=== PATIENT | female | born 2000 | race Caucasian/White ===

== ENCOUNTER 2025-03-22 11:09 | Day surgery (SDC) | payer BC ==
[2025-03-22 11:32] VITALS: BMI 23.6
== END 2025-03-22 12:25 | disposition home health service (06) ==
LOC: CSHLD/OP 11:09 → EEVIPCON 11:09 → CSHLD/OP 12:25
PROVIDERS: ATTEND Obstetrics & Gynecology
DX: O47.1 False labor at or after 37 completed weeks of gestation (principal); Z3A.39 39 weeks gestation of pregnancy; Z91.040 Latex allergy status
CPT/HCPCS: 99283

== ENCOUNTER 2025-03-26 21:16 | Inpatient (IN) | payer BC ==
[2025-03-26 21:44] VITALS: BMI 24.3
[2025-03-26] MEDS ORDERED: Tranexamic Acid 1,000 MG/10 ML VIAL IVP PRN (22:26)
[2025-03-26] MEDS ORDERED: Methylergonovine 0.2 MG/ML VIAL IM PRN (22:26)
[2025-03-26] MEDS ORDERED: Carboprost 250 MCG/ML AMP IM PRN (22:26)
[2025-03-26] MEDS ORDERED: Diphenoxylate HCl/Atropine Tablet PO PRN (22:26)
[2025-03-26] MEDS ORDERED: Ondansetron PF 4 MG/2 ML Vial IVP PRN (22:26)
[2025-03-26] MEDS ORDERED: hydrALAZINE 20 MG/ML VIAL SLOW IVP PRN (22:26)
[2025-03-26] MEDS ORDERED: Lidocaine 1% (PF) 30 ML VIAL SC PRN (22:26)
[2025-03-26] MEDS ORDERED: Acetaminophen 500 MG TAB PO PRN (22:26)
[2025-03-26] MEDS ORDERED: Oxytocin 30 units/NS 500 ML 500 ML IV SCH ×2 (22:30)
[2025-03-26 22:36] LABS: Hematocrit 42.0 % (34.9-44.5); Hemoglobin 14.0 g/dL (12.0-15.5); Mean Corpuscular Hemoglobin 30.2 pg (27.0-33.0); Mean Corpuscular Volume 90.5 fL (81.6-98.3); Platelet Count 329 10x3/uL (150-450); Red Blood Cell (RBC) Count 4.64 10x6/uL (3.90-5.03); White Blood Cell (WBC) Count 14.50 10x3/uL (3.5-10.5)
[2025-03-26 23:06] LABS: Syphilis Antibody Index 0.05 S/CO (<1.00 Non-Reactive)
[2025-03-26 23:07] LABS: Hep B Surf Ag - L&D Non-Reactive S/CO (NonReactive)
[2025-03-27] MEDS: fentaNYL/Ropivacaine Epidural 100 ML ONE (01:21)
[2025-03-27] MEDS ORDERED: diphenhydrAMINE 50 MG/ML VIAL IVP PRN (01:27)
[2025-03-27] MEDS ORDERED: Ondansetron PF 4 MG/2 ML Vial IVP PRN (01:27)
[2025-03-27] MEDS ORDERED: fentaNYL 2 mcg/Ropivacaine 0.2% Epidural 100 ML CADD EPIDURAL SCH (01:30)
[2025-03-27] MEDS ORDERED: Communication Order-Pharmacy FS SCH (01:30)
[2025-03-27] MEDS: Ibuprofen 800 MG TAB PO PRN (11:29)
[2025-03-27] MEDS ORDERED: Bupivacaine 0.25% HCL 30 ML VIAL ONE (13:14)
[2025-03-27] MEDS ORDERED: Benzocaine-Menthol 82.5 ML CAN TOP PRN (18:13)
[2025-03-27] MEDS: Acetaminophen 325 MG TAB PO PRN (20:45)
[2025-03-27] MEDS: Ibuprofen 800 MG TAB PO SCH (22:34)
[2025-03-28 09:43] VITALS: BP 113/59; TEMP 97.5
== END 2025-03-28 13:30 | disposition home or self-care (01) | DRG 807 ==
LOC: CSHLD/OP 21:16 → CSHLD 22:29 → CSHPP 03-27 12:00
PROVIDERS: ADMIT Obstetrics & Gynecology; ATTEND Obstetrics & Gynecology
PROC: 10E0XZZ Delivery of Products of Conception, External Approach (ICD-10-PCS; principal; 2025-03-27)
PROC: 10907ZC Drainage of Amniotic Fluid, Therapeutic from Products of Conception, Via Natural or Artificial Opening (ICD-10-PCS; 2025-03-27)
PROC: 3E0334Z Introduction of Serum, Toxoid and Vaccine into Peripheral Vein, Percutaneous Approach (ICD-10-PCS; 2025-03-27)
DX: O48.0 Post-term pregnancy (principal); Z37.0 Single live birth; Z3A.40 40 weeks gestation of pregnancy; O26.893 Other specified pregnancy related conditions, third trimester; Z67.21 Type B blood, Rh negative
CPT/HCPCS: 36415; 51702; 85027; 85461; 86780; 86850; 86870; 86900; 86901; 87340; 90384; 96372; 99285; J0665; J7120